=== PATIENT | female | born 1980 | race African-American/Black ===

== ENCOUNTER 2017-08-03 00:16 | Emergency (ER) | payer OTHER ==
[~2017-08-03] VITALS: Ht 172.7 cm; Wt 81.0 kg
[2017-08-03 00:31] VITALS: BP 133/97
== END 2017-08-03 03:03 | disposition left against medical advice (07) ==
LOC: ER 00:16
DX: Z53.21 Procedure and treatment not carried out due to patient leaving prior to being seen by health care provider (principal)